=== PATIENT | male | born 1985 | race Caucasian/White ===

== ENCOUNTER → 2021-06-13 | Emergency (ER) | payer MEDICAID ==
[~2021-06-13] VITALS: Ht 188 cm; Wt 82.6 kg
[~2021-06-13] MED LIST: ALBU8HFA PO; AMOX-580 PO
[2021-06-13 08:49] VITALS: BP 123/63
== END | disposition home or self-care (01) ==
LOC: ER 08:14
DX: J06.9 Acute upper respiratory infection, unspecified (principal); R10.84 Generalized abdominal pain
CPT/HCPCS: 87081; 87880; 99283

== ENCOUNTER 2025-06-29 08:03 | Emergency (ER) | payer BC, MEDICAID ==
[~2025-06-29] VITALS: Ht 188 cm; Wt 85.4 kg
--- NOTE | 2025-06-29 08:20 | Physician Documentation ---
History of Present Illness Chief Complaint: Abdominal Pain w/vomiting Stated Complaint: NAUSEA VOMITING Time Seen by MD: 08:15 HPI This is a 39-year-old male who presents to the emergency department due to concerns for four days of abdominal pain with diarrhea. He denies any recent foreign travel or known exposure to contaminated food, but does note that [place] and is concerned that he had exposure to contaminated water. No recent antibiotics in the last six months. He reports that his only medical condition is asthma, which rarely gives him any troubles. He did have a fever earlier this week, reportedly over 102. He is endorsing weakness, nausea, chills. No vomiting. No black or bloody stools. Medication Reconciliation Allergies: Coded Allergies: No Known Allergies (Unverified , 06/29/25) Scheduled Loperamide Hcl (Loperamide), 1 TAB PO Q12H Scheduled PRN ONDANSETRON ODT 4mg tablet (Ondansetron Odt), 1 TAB PO Q6H PRN PRN for nausea/vomiting Review of Systems ROS As stated above in the HPI, otherwise all systems are reviewed and negative. Physical Exam Vital Signs: Temperature: 98.1, Source: Oral, Heart Rate: 79, Respiratory Rate: 17, BP: 138/100, Pulse Oximetry: 98, Weight: 85.400 Physical Exam General: Alert, no apparent distress. Neck: Full range of motion. Respiratory: Lungs clear, no respiratory distress. Chest: No accessory muscle use. Cardiovascular: Regular rate and rhythm, no murmurs. Gastrointestinal: Soft, mild diffuse tenderness, mildly distended. Bowels sounds present. Extremities: Normal range of motion, no deformity. Neurologic: Oriented x4. Psychiatric: Normal mood and affect. Skin: Normal color, warm and dry. No edema, no ecchymosis. Progress Results/Orders Results/Orders Orders - ELKIN KOCH NP Cbc/Diff (06/29/25 08:16) Lipase (06/29/25 08:16) Urinalysis, Cult If Indicated (06/29/25 08:16) CMP (06/29/25 08:16) Ondansetron Inj. (Zofran 4mg/2ml Vial) (06/29/25 08:20) Normal Saline 1,000ml Iv Bolus (06/29/25 08:20) Vital Signs 06/29/25 08:08 Temp 98.1 Pulse 79 Resp 17 B/P (MAP) 138/100 Pulse Ox 98 Medical Decision Making Additional Comments WELL-APPEARING 39-YEAR-OLD MALE PRESENTS WITH FOUR DAYS of diarrhea and gener alized abdominal pain. No black or bloody stools. Does report a fever over 102. Labs unremarkable other than evidence of dehydration, mild hypokalemia, hyponatremia. The patient was hydrated with 2 L of normal saline, given ondansetron for nausea, given Toradol 15 mg IV for pain. Stool samples obtained. The patient is to see a primary care provider within a week, need will need labs rechecked at that time. We will be sent home with ondansetron and small amount of loperamide for sparing use. He will be off work the next two days. Departure Time of Disposition: 09:35 Disposition: HOME / SELF CARE / HOMELESS Impression: Primary Impression: Acute gastroenteritis Condition: Stable Discharge Instructions: Viral Gastroenteritis, Adult, [id number] Additional Instructions: This is likely a viral illness, but the stool culture will tell us if it is an infection such as giardia. Please establish with primary care and let them know you need an ER followup ideally within a week as you need a blood potassium rechecked. They can also check on the stool culture. OK to use loperamide sparingly for the next few days. 2 mg twice daily is the max for now. Stay hydrated, pedialyte/gatorade/prime, etc. Use the ondansetron as needed for nausea. RETURN IF WORSE Departure Forms: Excuse form Work or School Excused From: Work Excuse beginning now through the following date: Jul 03, 2025 Referrals: NO PRIMARY CARE PROVIDER (PCP) Prescriptions Loperamide Hcl (Loperamide) 2 Mg Tablet 1 TAB PO Q12H for loose stool for 7 Days, #14 TAB 0 Refills Prov: ELKIN KOCH NP 06/29/25 ONDANSETRON ODT 4mg tablet (ONDANSETRON ODT) 4 Mg Tab.rapdis 1 TAB PO Q6H PRN PRN for nausea/vomiting for 4 Days, #16 TAB 0 Refills Prov: ELKIN KOCH NP 06/29/25 Education Educated: Patient Educated regarding: diagnosis, treatment, prognosis, need for follow up Signature Scribe Signature: x Attestation: The note accurately reflects work and decisions made by me.Elkin Colon NP 06/29/25 08:24 ELKIN KOCH NP Jun 29, 2025 08:20
[2025-06-29] MEDS: normal saline 1000ml 1,000 ML IV ONE ×2 (08:44→09:36)
[2025-06-29] MEDS: ondansetron/PF 4mg/2ml inj IV ONE (08:44)
[2025-06-29 08:54] LABS: MEAN PLATELET VOLUME 7.6 FL (7.4-10.4); RED CELL DISTRIBUTION WIDTH 13.6 % (11.5-14.5)
[2025-06-29 09:06] LABS: CREATININE 0.91 MG/DL (0.60-1.10); TOTAL CARBON DIOXIDE 21.2 MMOL/L (24-32); eCRCL 128 ML/MIN; eGFR > 90 ML/MIN
[2025-06-29 09:27] LABS: LEUKOCYTE ESTERASE ,URINE NEGATIVE (Neg); NITRITES, URINE NEGATIVE (Neg); OCCULT BLOOD,URINE NEGATIVE (Neg)
[2025-06-29] MEDS: potassium Cl 20 mEq SR tablet PO ONE (09:31)
[2025-06-29] MEDS: ketorolac trometh 15mg/ml vial 15 MG/ML ML IV ONE (09:31)
[2025-06-29 09:32] LABS: UA COLLECTION TYPE CLN CATCH MIDSTREAM
[2025-06-29] MEDS ORDERED: ONDA-243 PO (09:37)
[2025-06-29] MEDS ORDERED: LOPE2TAB25 PO (09:37)
[2025-06-29 11:12] VITALS: BP 124/84; PULSE 69; RESP 18; TEMP 98.1; O2SAT 96
== END 2025-06-29 11:15 | disposition home or self-care (01) ==
LOC: ER 08:03
DX: K52.9 Noninfective gastroenteritis and colitis, unspecified (principal); J45.909 Unspecified asthma, uncomplicated; Z79.899 Other long term (current) drug therapy
CPT/HCPCS: 36415; 80053; 81003; 83690; 85025; 87045; 87046; 96361; 96374; 96375; 99285; J1885; J2405; J7030; 87077; 87186

== ENCOUNTER 2025-07-04 08:05 | Emergency (ER) | payer BC ==
[~2025-07-04] VITALS: Ht 188 cm; Wt 85.8 kg
[~2025-07-04 08:05] MED LIST changes: -ALBU8HFA PO; -AMOX-580 PO; +LOPE2TAB25 PO; +ONDA-243 PO
[2025-07-04 08:09] VITALS: BP 116/73; PULSE 63; RESP 14; TEMP 97.8; O2SAT 99
--- NOTE | 2025-07-04 09:43 | Physician Documentation ---
History of Present Illness ~ Chief Complaint: Medication Request Stated Complaint: RECHECK Time Seen by MD: 09:22 HPI Patient is seen today with complaints of diagnosed salmonella infection. Patient states he was seen here a few days ago with severe abdominal cramping and diarrhea and did have stool sampling done that came back positive for Salmonella. Patient states his symptoms have improved but he still having watery diarrhea and abdominal cramping. Patient states symptoms started about eight days ago. Patient denies any chest pain or shortness of breath or nausea or vomiting. He has no other concern or complaint at this time. Medication Reconciliation Allergies: Coded Allergies: No Known Allergies (Unverified , 06/29/25) Scheduled Loperamide Hcl (Loperamide), 1 TAB PO Q12H Scheduled PRN ONDANSETRON ODT 4mg tablet (Ondansetron Odt), 1 TAB PO Q6H PRN PRN for nausea/vomiting Review of Systems Constitutional: Denies: chills, fever, weakness Eyes: Denies: pain, blurred vision ENT: Denies: ear pain, nose pain, throat pain, mouth pain Respiratory: Denies: cough, shortness of breath Cardiovascular: Denies: chest pain, palpitations Gastrointestinal: Denies: abdominal pain, nausea, vomiting Genitourinary: Denies: burning, dysuria Male Genitalia: Denies: penile discharge, testicular pain Neurological: Denies: headache, dizziness Musculoskeletal: Denies: pain, swelling Integumentary: Denies: rash, lesions Allergic/Immunologic: Denies: hives, itching Hematologic/Lymphatic: Denies: no symptoms reported Psychiatric: Denies: depression, anxiety Physical Exam Vital Signs: Temperature: 97.8, Source: Oral, Heart Rate: 63, Respiratory Rate: 14, BP: 116/73, Pulse Oximetry: 99, Weight: 85.800 Physical Exam General: Awake and Alert, no acute distress. HEENT: Conjunctiva pink, Sclera clear, Mucus Membranes moist. Neck: Supple without masses and tenderness. Resp: Unlabored. Lungs clear to auscultation bilaterally. Heart: Regular Rate and rhythm, normal S1 and S2 without murmur, rub or gallop. Abdomen: Abdomen is soft, non distended, mild diffuse tenderness, no rebound, no guarding. Extremities: No cyanosis,clubbing or edema. Skin: Warm and Dry. Progress Results/Orders Results/Orders Vital Signs 07/04/25 08:09 Temp 97.8 Pulse 63 Resp 14 B/P (MAP) 116/73 Pulse Ox 99 Medical Decision Making Findings Patient is seen today with complaints of diagnosed salmonella infection. Patient states he was seen here a few days ago with severe abdominal cramping and diarrhea and did have stool sampling done that came back positive for Salmonella. Patient states his symptoms have improved but he still having watery diarrhea and abdominal cramping. Patient states symptoms started about eight days ago. Patient denies any chest pain or shortness of breath or nausea or vomiting. He has no other concern or complaint at this time. Patient was given prescription of Augmentin 875/125 mg one tab twice a day for seven days. I did advise patient that often symptoms can resolve without any intervention. Patient is to take antibiotics only if symptoms worsen. Patient will return to ED with any worsening, concerning or changing symptoms. Departure Disposition: 01 HOME / SELF CARE / HOMELESS Impression: Primary Impression: Salmonella infection Condition: Stable Discharge Instructions: Salmonella Gastroenteritis, Adult Additional Instructions: Patient was given prescription of Augmentin 875/125 mg one tab twice a day for seven days. I did advise patient that often symptoms can resolve without any intervention. Patient is to take antibiotics only if symptoms worsen. Patient will return to ED with any worsening, concerning or changing symptoms. Referrals: NO PRIMARY CARE PROVIDER (PCP) Prescriptions Amox Tr/Potassium Clavulanate 875/125 MG (Augmentin 875/125 MG) 875 Mg-125 Mg Tablet 1 TAB PO Q12H for 7 Days, #14 TAB Prov: SAMIR MITCHELL 07/04/25 Signature Scribe Signature: No scribe Attestation: No scribe SAMIR MITCHELL Jul 04, 2025 09:43
[2025-07-04] MEDS ORDERED: AMOX-580 PO (09:46)
== END 2025-07-04 10:05 | disposition home or self-care (01) ==
LOC: ER 08:05
DX: A02.9 Salmonella infection, unspecified (principal)
CPT/HCPCS: 99283

== ENCOUNTER 2025-08-11 08:50 | Emergency (ER) | payer BC ==
[~2025-08-11] VITALS: Ht 188 cm; Wt 84.5 kg
[2025-08-11 08:57] VITALS: BP 143/97; PULSE 73; O2SAT 100
--- NOTE | 2025-08-11 09:16 | Physician Documentation ---
History of Present Illness ~ Chief Complaint: Buttock Pain Stated Complaint: LEG PAIN Time Seen by MD: 09:14 HPI 39-year-old male presents to the ED after going on a paddle boarding tripped two weeks ago. After waking up the next day he had numbness in his right leg and pain in his right gluteus. Presenting trauma. 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 Denies any red flag symptoms including fevers or incontinence Medication Reconciliation Allergies: Coded Allergies: No Known Allergies (Unverified , 08/11/25) Scheduled Cyclobenzaprine HCl (Cyclobenzaprine HCl), 1 TAB PO Q8H Loperamide Hcl (Loperamide), 1 TAB PO Q12H Naproxen (Naproxen), 1 TAB PO Q12H Scheduled PRN ONDANSETRON ODT 4mg tablet (Ondansetron Odt), 1 TAB PO Q6H PRN PRN for nausea/vomiting Review of Systems All Other Systems at this time: Reviewed and Negative ROS As stated above in the HPI, otherwise all systems are reviewed and negative. Physical Exam Physical Exam Vital Signs: Temperature: 98.7, Source: Temporal, Heart Rate: 73, Respiratory Rate: 16, BP: 143/97, Pulse Oximetry: 100, Weight: 84.550 Oxygen Flow Rate: 0 Physical Exam General: Alert, no apparent distress. Extremities: Normal range of motion, no deformity. tender deep right gluteous Neurologic: Oriented x4. Psychiatric: Normal mood and affect. Skin: Normal color, warm and dry. No edema, no ecchymosis. Progress Results/Orders Results/Orders Orders - RUSS CANELA [employer] Hip Unilateral 2 Views (08/11/25 09:26) Completed Orders - RUSS CANELA [employer] Ketorolac Trometh 30mg/Ml Vial (Toradol (08/11/25 09:30) Hip Unilateral 2 Views (08/11/25 09:26) Vital Signs 08/11/25 08/11/25 08/11/25 08:57 09:52 10:17 Temp 98.7 98.7 Pulse 73 Resp 16 16 B/P (MAP) 143/97 Pulse Ox 100 O2 Flow Rate 0 Medical Decision Making Findings Patient does not present with any acute fracture per my interpretation of the right hip x-ray. There was no signs dislocation as well. I do suspect. Piriformis syndrome.. He is likely in the middle of the inflammatory state. Differential Dx:Considerations: Include: AAA, Aortic dissection, Appendicitis, Bowel obstruction, Cholelithiasis, Cholangitis, DJD, Fracture, Hepatitis, HNP, Musculoskeletal pain, Pancreatitis, Pyelonephritis, Renal infarction, Strain, Urinary obstruction, Urolithiasis, Urinary tract infection, Other Departure Disposition: HOME / SELF CARE / HOMELESS Impression: Primary Impression: Piriformis syndrome Discharge Instructions: Piriformis Syndrome, Piriformis Syndrome Rehab, Sciatica Departure Forms: Excuse form Work or School Excused From: Work Excuse beginning now through the following date: Aug 15, 2025 May Return but still avoid physical Activity from now until: Aug 15, 2025 May Return to full physical activity as of: Aug 15, 2025 Referrals: NO PRIMARY CARE PROVIDER (PCP) Prescriptions Cyclobenzaprine HCl (Cyclobenzaprine HCl) 10 Mg Tablet 1 TAB PO Q8H for muscle spasms for 10 Days, #30 TAB Prov: RUSS CANELA NP 08/11/25 Naproxen (Naproxen) 500 Mg Tablet 1 TAB PO Q12H, #20 TAB Prov: RUSS CANELA NP 08/11/25 Signature Scribe Signature: f Attestation: Scribed for Russ Canela [employer]rain[employer] Machine by Russ Colon NP . 08/11/25 18:38 RUSS CANELA NP Aug 11, 2025 09:16
[2025-08-11 09:52] VITALS: RESP 16
[2025-08-11] MEDS ORDERED: NAPR-56 PO (09:52)
[2025-08-11] MEDS: ketorolac trometh 30MG/ML vial 30 MG/ML VIAL IM ONE (09:52)
[2025-08-11] MEDS ORDERED: CYCL-394 PO (09:52)
[2025-08-11 10:17] VITALS: TEMP 98.7
--- NOTE | 2025-08-11 10:23 | RADIOLOGY REPORT ---
Right HIP RADIOGRAPH. CLINICAL INDICATION: RIGHT hip pain TECHNIQUE: 3 views of the right hip were obtained. FINDINGS: There is no evidence of fracture, subluxation or dislocation.The alignment is within normal limits.The bony mineralization is normal.No radiopaque foreign body is identified. IMPRESSION: 1. No evidence of acute bony injury.
== END 2025-08-11 10:19 | disposition home or self-care (01) ==
LOC: ER 08:51
DX: G57.01 Lesion of sciatic nerve, right lower limb (principal)
CPT/HCPCS: 73502; 96372; 99283; J1885

== ENCOUNTER 2025-08-25 09:34 | Emergency (ER) | payer BC ==
[~2025-08-25] VITALS: Ht 188 cm; Wt 81.0 kg
[~2025-08-25 09:34] MED LIST changes: +NAPR-56 PO
[2025-08-25 09:36] VITALS: BP 130/100; PULSE 108; RESP 15; TEMP 96.8; O2SAT 97
[2025-08-25] MEDS ORDERED: LIDO700A47 TOP (11:06)
[2025-08-25] MEDS ORDERED: TRAM50TA2 PO (11:06)
[2025-08-25] MEDS ORDERED: IBUP-864 PO (11:06)
--- NOTE | 2025-08-25 11:07 | Physician Documentation ---
History of Present Illness ~ General Chief Complaint: Buttock Pain Stated Complaint: MED REQUEST Time Seen by MD: 10:56 Source: patient Mode of Arrival: POV Exam Limitations: no limitations History of Present Illness Initial Comments 40-year-old male was evaluated in the emergency department several days ago di agnosed with piriformis syndrome after pulling a muscle paddle boarding. Patient is requesting something for pain while he waits for primary care as well as work note today as it has been difficult even to perform ADLs. No new injuries Medication Reconciliation Allergies: Coded Allergies: No Known Allergies (Unverified , 08/25/25) Scheduled Ibuprofen (Ibu), 1 TAB PO Q8H Lidocaine (Lidocaine), 1 PATCH TOP DAILY Loperamide Hcl (Loperamide), 1 TAB PO Q12H Naproxen (Naproxen), 1 TAB PO Q12H Scheduled PRN ONDANSETRON ODT 4mg tablet (Ondansetron Odt), 1 TAB PO Q6H PRN PRN for nausea/vomiting Tramadol Hcl (Tramadol Hcl), 1 TAB PO Q6H PRN PRN for pain Discontinued Medications Cyclobenzaprine HCl (Cyclobenzaprine HCl), 1 TAB PO Q8H Discontinued Reason: Auto Discontinued Review of Systems All Other Systems at this time: Reviewed and Negative Musculoskeletal: Reports: see HPI Physical Exam Physical Exam Vital Signs: RN Vital Signs have been reviewed: Yes, Temperature: 96.8, Source: Temporal, Heart Rate: 108, Respiratory Rate: 15, BP: 130/100, Pulse Oximetry: 97, Weight: 81.000 Physical Exam General: Alert, no apparent distress. HEENT: moist mucous membranes. Neck: Full range of motion. Respiratory: No respiratory distress speaking in full sentences Chest: No accessory muscle use. Cardiovascular: Appears well perfused Neurologic: Oriented x4. Psychiatric: Normal mood and affect. Skin: Normal color, warm and dry. No edema, no ecchymosis. Progress Results/Orders Results/Orders Vital Signs 08/25/25 09:36 Temp 96.8 Pulse 108 Resp 15 B/P (MAP) 130/100 Pulse Ox 97 Medical Decision Making Findings Reviewed old records we will provide work note for patient and give patient some tramadol twice a day to help with some pain. Departure Time of Disposition: 11:03 Disposition: 01 HOME / SELF CARE / HOMELESS Impression: Primary Impression: Piriformis syndrome Condition: Stable Discharge Instructions: Muscle Cramps and Spasms Additional Instructions: Take medication as prescribed you do need to stretch this is going to help with this type of injury follow up with primary care urgent care Departure Forms: Excuse form Work or School Excused From: Work Excuse beginning now through the following date: Aug 25, 2025 Referrals: NO PRIMARY CARE PROVIDER (PCP) Prescriptions Lidocaine (Lidocaine) 5 % Adh..patch 1 PATCH TOP DAILY for 30 Days, #30 PATCH 0 Refills Prov: LANNY ABAD NP 08/25/25 Tramadol Hcl (Tramadol Hcl) 50 Mg Tablet 1 TAB PO Q6H PRN PRN for pain for 7 Days, #28 TAB Prov: LANNY ABAD NP 08/25/25 Ibuprofen (Ibu) 800 Mg Tablet 1 TAB PO Q8H for 7 Days, #21 TAB 0 Refills Prov: LANNY ABAD NP 08/25/25 Education Educated: Patient Educated regarding: diagnosis, treatment, need for follow up Signature Scribe Signature: No scribe Attestation: The note accurately reflects work and decisions made by me.Lanny MORGAN 08/25/25 11:07 LANNY ABAD NP Aug 25, 2025 11:07
== END 2025-08-25 11:14 | disposition home or self-care (01) ==
LOC: ER 09:34
DX: G57.00 Lesion of sciatic nerve, unspecified lower limb (principal)
CPT/HCPCS: 99283